=== PATIENT | male | born 1990 | race Caucasian/White ===

== ENCOUNTER 2019-04-14 13:34 | Emergency (ER) | payer BC ==
[~2019-04-14] VITALS: Ht 170.2 cm; Wt 78.0 kg
[2019-04-14] MEDS ORDERED: ONDANSETRON ODT 4 MG ONE (13:57)
[2019-04-14] MEDS ORDERED: HYDROcodone/APAP 5/325 TABLET ONE (13:57)
[2019-04-14] MEDS ORDERED: LIDOCAINE-MPF 1%, 5ML ONE ×2 (13:57→14:43)
[2019-04-14] MEDS ORDERED: LIDOCAINE-MPF 1%, 5ML INFIL ONE (14:00)
[2019-04-14] MEDS ORDERED: HYDROcodone/APAP 5/325 TABLET PO ONE (14:00)
[2019-04-14] MEDS ORDERED: ONDANSETRON ODT 4 MG PO ONE (14:00)
[2019-04-14] MEDS ORDERED: L.E.T SOLUTION TP ONE (14:00)
[2019-04-14] MEDS ORDERED: LEXAPRO PO (14:04)
[2019-04-14 15:57] VITALS: BP 116/63
== END 2019-04-14 16:12 | disposition home or self-care (01) ==
LOC: ED 16:05
DX: S91.311A Laceration without foreign body, right foot, initial encounter (principal); W22.8XXA Striking against or struck by other objects, initial encounter; Y93.89 Activity, other specified; Y92.89 Other specified places as the place of occurrence of the external cause; Y99.8 Other external cause status
CPT/HCPCS: 12002; 73630; 99283; Q0162